=== PATIENT | female | born 1940 | race Caucasian/White ===

== ENCOUNTER 2019-02-25 17:41 | Emergency (ER) | payer MEDICARE, OTHER ==
[2019-02-25 19:00] LABS: ABSOLUTE NEUTROPHIL COUNT 6.86; BASO % 0.3 % (0-6); EOS % 1.4 % (0-6); GRAN % 72.6 % (47-80); HEMATOCRIT 48.8 % (35.0-47.0); HEMOGLOBIN 15.5 gm/dl (11.6-16.0); LYMPH % 19.9 % (16-45); MEAN CELL VOLUME 92.8 fl (81-97); MEAN CORPUSCULAR HEMOGLOBIN 29.5 pg (27-33); MEAN CORPUSCULAR HGB CONC 31.8 g/dl (32-36); MEAN PLATELET VOLUME 12.1 fl (7.4-10.4); MONO % 5.8 % (0-9); PLATELET COUNT 284 K/uL (130-400); RED BLOOD COUNT 5.26 M/uL (3.80-5.40); RED CELL DISTRIBUTION WIDTH 14.9 % (11.5-14.5); WHITE BLOOD COUNT W/O DIFF 9.5 K/uL (4.2-12.2)
[2019-02-25 19:09] LABS: BLOOD UREA NITROGEN 8 mg/dL (8-23); CREATININE 0.8 mg/dL (0.5-0.9); EST GLOMERULAR FILTRATION RATE > 60 mL/min
[2019-02-25 19:10] LABS: TOTAL PROTEIN 8.2 g/dL (6.6-8.7)
[2019-02-25 19:12] LABS: GLUCOSE,RANDOM 117 mg/dL (74-109)
[2019-02-25 19:14] LABS: ALT/SGPT 27 U/L (<33)
[2019-02-25 19:15] LABS: ALB/GLOB RATIO 1.3 (1.1-1.8); ALBUMIN 4.7 g/dL (4.0-5.0); ALKALINE PHOSPHATASE 106 U/L (35-104); AST/SGOT 24 U/L (10.0-35.0)
--- NOTE | 2019-02-25 19:19 | Emergency Department Record ---
History of Present Illness - General Chief Complaint: Dizziness Stated Complaint: WITHDRAWALS Time Seen by Provider: 02/25/19 18:38 Source: Patient, Family Mode of Arrival: Ambulatory Limitations: No limitations - History of Present Illness Initial Comments: pt states she is having withdrawal from xanax. her last dose was 11 days ago. she has been given xanax intermittently for grief from the loss of her . [place] moved to [place]. she states she has lightheadedness and dizziness and feels off balance. she has ap, bp, shoulder pain. her skin is sensitive. she has been at [address] for the same symptoms MD Complaint: Dizziness, Lightheadedness Onset/Timin -: Week(s) Timing: Intermittent History of Same: Yes History of Trauma: No Severity: Moderate Improves With: Medication Worsens With: Nothing Associated Symptoms: Other - [place] Coma Scale Eye Response: (4) Open spontaneously Motor Response: (6) Obeys commands Verbal Response: (5) Oriented [place]ef[place] Total: 15 - Related Data Home Medications Medication Instructions Recorded Confirmed Last Taken Alprazolam [Xanax] 0.25 mg PO BID 02/25/19 02/25/19 02/14/19 Atenolol 50 mg PO DAILY 02/25/19 02/25/19 02/25/19 Dicyclomine HCl [Bentyl] 10 mg PO Q6H 02/25/19 02/25/19 02/25/19 Omeprazole [Prilosec] 20 mg PO BID 02/25/19 02/25/19 02/25/19 Previous Rx's Medication Instructions Recorded Dicyclomine HCl [Bentyl] 10 mg PO Q8H #10 cap 02/25/19 Allergies Allergy/AdvReac Type Severity Reaction Status Date / Time amoxicillin Allergy SKIN Verified 02/25/19 18:00 IRRITATION Travel Screening - Travel/Exposure Within Last 30 Days Have you traveled within the last 30 days?: Yes Location Detail:: [place] - Travel/Exposure Within Last Year Have you traveled outside the [place] in the last year?: No - Additonal Travel Details Have you been exposed to anyone with a communicable illness?: No - Travel Symptoms Symptom Screening: Stomach Pain Review of Systems Reviewed: No additional complaints except as noted below Constitutional: Reports: As per HPI, Malaise, Weakness. Denies: Chills, Fever, Night sweats, Weight change Eyes: Reports: As per HPI. Denies: Eye discharge, Eye pain, Photophobia, Vision change ENT: Reports: As per HPI. Denies: Congestion, Dental pain, Ear pain, Epistaxis, Hearing loss, Throat pain Respiratory: Reports: As per HPI. Denies: Cough, Dyspnea, Hemoptysis, Stridor, Wheezes Cardiovascular: Reports: As per HPI. Denies: Arrhythmia, Chest pain, Dyspnea on exertion, Edema, Murmurs, Orthopnea, Palpitations, Paroxysmal nocturnal dyspnea, Rheumatic Fever, Syncope Endocrine: Reports: As per HPI, Fatigue. Denies: Heat or cold intolerance, P olydipsia, Polyuria Gastrointestinal: Reports: As per HPI, Abdominal pain. Denies: Constipation, Diarrhea, Hematemesis, Hematochezia, Melena, Nausea, Vomiting Genitourinary: Reports: As per HPI. Denies: Abnormal menses, Discharge, Dyspareunia, Dysuria, Frequency, Hematuria, Incontinence, Retention, Urgency Musculoskeletal: Reports: As per HPI. Denies: Arthralgia, Back pain, Gout, Joint swelling, Myalgia, Neck pain Skin: Reports: As per HPI. Denies: Bruising, Change in color, Change in hair/n ails, Lesions, Pruritus, Rash Neurological: Reports: As per HPI. Denies: Abnormal gait, Confusion, Headache, Numbness, Paresthesias, Seizure, Tingling, Tremors, Vertigo, Weakness Psychiatric: Reports: As per HPI. Denies: Anxiety, Auditory hallucinations, Depression, Homicidal thoughts, Suicidal thoughts, Visual hallucinations Hematological/Lymphatic: Reports: As per HPI. Denies: Anemia, Blood Clots, Easy bleeding, Easy bruising, Swollen glands Past Medical History - SOCIAL HISTORY Smoking Status: Former smoker Alcohol Use: None Drug Use: None - RESPIRATORY Hx Respiratory Disorders: Yes Hx Bronchitis: Yes Hx Pneumonia: Yes - CARDIOVASCULAR Hx Cardio Disorders: Yes Hx Chest Pain: Yes Hx Heart Attack: Yes Hx Hypertension: Yes - NEURO Hx Neuro Disorders: Yes Hx TIA: Yes - GI Hx GI Disorders: Yes Hx Diverticulitis: Yes Hx Ulcer: Yes Comment:: spastic colon - Hx Genitourinary Disorders: No - ENDOCRINE Hx Endocrine Disorders: Yes Hx Diabetes: Yes Hx Thyroid Disease: No - MUSCULOSKELETAL Hx Musculoskeletal Disorders: Yes Hx Arthritis: Yes - PSYCH Hx Psych Problems: No - HEMATOLOGY/ONCOLOGY Hx Hematology/Oncology Disorders: No Family Medical History Any Significant Family History?: No Physical Exam - General General Appearance: Alert, Oriented x3, Cooperative, Mild distress - Head Head exam: Normal inspection - Eye Eye exam: Normal appearance, PERRL, EOMI Pupils: Normal accommodation - ENT ENT exam: Normal exam, Mucous membranes moist, Normal external ear exam, Normal orophraynx Ear exam: Normal external inspection. negative: External canal tenderness Nasal Exam: Normal inspection. negative: Discharge, Sinus tenderness Mouth exam: Normal external inspection, Tongue normal Teeth exam: Normal inspection. negative: Dental caries Throat exam: Normal inspection. negative: Tonsillar erythema, Tonsillar exudate - Neck Neck exam: Normal inspection, Full ROM. negative: Tenderness - Respiratory Respiratory exam: Normal lung sounds bilaterally. negative: Respiratory distress - Cardiovascular Cardiovascular Exam: Regular rate, Normal rhythm, Normal heart sounds - GI/Abdominal GI/Abdominal exam: Soft, Normal bowel sounds. negative: Tenderness - Rectal Rectal exam: Deferred - exam: Deferred - Extremities Extremities exam: Normal inspection, Full ROM, Normal capillary refill. negative: Tenderness - Back Back exam: Reports: Normal inspection, Full ROM. Denies: Muscle spasm, Rash noted, Tenderness - Neurological Neurological exam: Alert, CN II-XII intact, Normal gait, Oriented X3 - Psychiatric Psychiatric exam: Normal affect, Normal mood - Skin Skin exam: Dry, Intact, Normal color, Warm Course Vital Signs 02/25/19 17:59 Temperature 98.0 F Pulse Rate [ 84 Pulse Ox Probe] Respiratory 20 Rate Blood Pressure 131/94 [Right Arm] Pulse Ox 96 - Reevaluation(s) Reevaluation #1: 02/25/19 21:29 pt feels better. she wants to go home. Reevaluation #2: 02/25/19 21:31 pt slept part of time and appeared much more comfortable Reevaluation #3: 02/25/19 21:32 pt wants more bentyl Medical Decision Making - Lab Data Result diagrams: 02/25/19 18:56 02/25/19 18:56 Lab Results 02/25/19 Range/Units 18:56 Sodium 138 (136-145) mmol/L Potassium 3.3 L (3.4-4.5) mmol/L Chloride 91 L (98-107) mmol/L Carbon Dioxide 30.0 H (22-29) mmol/L Anion Gap 17.0 H (7-16) BUN 8 (8-23) mg/dL Creatinine 0.8 (0.5-0.9) mg/dL Estimated GFR > 60 mL/min Random Glucose 117 H (74-109) mg/dL Calcium 10.3 H (8.8-10.2) mg/dL Total Bilirubin 0.60 (0.2-1.0) mg/dL Total Protein 8.2 (6.6-8.7) g/dL Disposition Disposition: Discharge Clinical Impression: Anxiety, Gastric pain, Hx of ulcer disease Disposition: Home, Self-Care Condition: (1) Good Instructions: Abdominal Pain (ED), Anxiety (ED) Additional Instructions: follow up with family doctor and gi doctor. return sooner if worse. rest Prescriptions: Dicyclomine HCl [Bentyl] 10 mg PO Q8H #10 cap Forms: Patient Portal Access Quality - Quality Measures Quality Measures: N/A - Blood Pressure Screening Does Patient Have Any of the Following: No Blood Pressure Classification: Pre-Hypertensive BP Reading Systolic Measurement: 152 Diastolic Measurement: 85 Screening for High Blood Pressure: < Pre-Hypertensive BP, F/U Documented > [G8950] Pre-Hypertensive Follow-up Interventions: Follow-up with rescreen every year.
[2019-02-25] MEDS ORDERED: POTASSIUM CHLORIDE 20 MEQ/15ML CUP PO ONE (19:37)
[2019-02-25] MEDS ORDERED: PROMETHAZINE HCL 6.25 MG in 0.9 % SODIUM CHLORIDE 100ML 100 ML IVPB ONE (19:47)
[2019-02-25] MEDS ORDERED: MAGNESIUM HYDROXIDE/AL HYDROX 30 ML, LIDOCAINE VISC 2% 15ML 15 ML PO ONE ×2 (20:48)
[2019-02-25] MEDS ORDERED: DICYCLOMINE HCL 10 MG CAPSULE PO ONE (21:34)
== END 2019-02-25 21:49 | disposition home or self-care (01) ==
LOC: ER 17:41
DX: R10.9 Unspecified abdominal pain (principal); R42 Dizziness and giddiness; R26.89 Other abnormalities of gait and mobility; F41.9 Anxiety disorder, unspecified; I10 Essential (primary) hypertension; I25.2 Old myocardial infarction; Z87.891 Personal history of nicotine dependence; E11.9 Type 2 diabetes mellitus without complications
CPT/HCPCS: 70450; 80053; 84484; 85025; 85651; 96365; 99284; J2550